=== PATIENT | female | born 1975 | race Hispanic/Latino ===

== ENCOUNTER 2018-08-24 09:16 | Outpatient (CLI) | payer OTHER ==
--- NOTE | 2018-08-24 22:20 | MMO ---
Bilateral MAMMO Bilat Screen [facility]DI. CLINICAL HISTORY: Patient is 42 years old and is seen for screening. The patient has the following family history of breast cancer: maternal aunt. The patient has no personal history of cancer. VIEWS: The views performed were: bilateral craniocaudal and bilateral mediolateral oblique. This study has been interpreted with the assistance of computer-aided detection. MAMMOGRAM FINDINGS: There are scattered fibroglandular densities. There are no suspicious masses, suspicious calcifications, or new areas of architectural distortion. IMPRESSION: THERE IS NO MAMMOGRAPHIC EVIDENCE OF MALIGNANCY. A ROUTINE FOLLOW-UP MAMMOGRAM IN 1 YEAR IS RECOMMENDED. ACR BI-RADS Category 1 - Negative MAMMOGRAPHY NOTE: 1. A negative mammogram report should not delay a biopsy if a dominant of clinically suspicious mass is present. 2. Approximately 10% to 15% of breast cancers are not detected by mammography. 3. Adenosis and dense breasts may obscure an underlying neoplasm.
== END 2018-08-24 09:17 | disposition home or self-care (01) ==
LOC: SCSMAMMO 09:16
PROVIDERS: ATTEND Family Medicine
DX: Z12.31 Encounter for screening mammogram for malignant neoplasm of breast (principal); Z80.3 Family history of malignant neoplasm of breast
CPT/HCPCS: 77067

== ENCOUNTER 2020-01-24 08:34 | Outpatient (CLI) | payer OTHER ==
--- NOTE | 2020-01-24 09:22 | ULT ---
US Abdominal: 01/24/2020 8:37 AM CLINICAL HISTORY: Hepatitis C. STUDY: Complete abdominal ultrasound COMPARISON: None. FINDINGS: Liver: Size: Normal. Echogenicity: Normal. Contour: Smooth. Mass: None. Common bile duct: 3 mm Gallbladder: Normal. Pancreas: Head, body, and tail appear normal. Inferior vena cava: Normal in caliber Aorta: Normal in caliber Spleen: No focal lesions. Spleen measuring 9.7 cm in length. Right kidney: No pelvicalyceal dilatation. Right kidney measuring 10.7 cm in length. Left kidney: No pelvicalyceal dilatation. Left kidney measuring 10.0 cm in length. IMPRESSION: Unremarkable exam.
== END 2020-01-24 08:35 | disposition home or self-care (01) ==
LOC: SCSULT 08:34
PROVIDERS: ATTEND Surgery Surgical Oncology
DX: B18.2 Chronic viral hepatitis C (principal)
CPT/HCPCS: 93975

== ENCOUNTER 2020-08-28 07:54 | Outpatient (CLI) | payer OTHER ==
[2020-08-28] MEDS ORDERED: Magnevist 469MG/ML 20 ML VIAL ONE (10:17)
== END 2020-08-28 07:55 | disposition home or self-care (01) ==
LOC: BICMRI 07:54
PROVIDERS: ATTEND Family Medicine
DX: M43.16 Spondylolisthesis, lumbar region (principal); M47.816 Spondylosis without myelopathy or radiculopathy, lumbar region
CPT/HCPCS: 72156; 82565; A9579

== ENCOUNTER 2022-01-01 08:00 | Day surgery (SDC) | payer OTHER ==
[2021-12-31 10:32] VITALS: BMI 35.3
[2022-01-01 09:02] LABS: #Eosinphils 0.1 thou/uL (0.0-0.7); #Lymphocytes 1.7 thou/uL (1.20-3.40); #Monocytes 0.7 thou/uL (0.11-0.59); #Neutrophils 4.2 thou/uL (1.40-6.50); %Basophils 0.7 % (0.0-1.0); %Eosinophils 1.7 % (0.0-10.0); %Lymphocytes 25.6 % (21.0-51.0); %Monocytes 10.2 % (0.0-10.0); %Neutrophils 61.8 % (42.0-75.0); Hemoglobin 14.3 g/dL (12.0-16.0); Mean Corpuscular HGB CONC 33.6 g/dL (32.0-36.0); Mean Corpuscular Hemoglobin 32.1 pg (27.0-31.0); Mean Corpuscular Volume 95.3 fL (78.0-98.0); Mean Platelet Volume 7.8 fL (7.4-10.4); Platelet Count 262 thou/uL (130-400); Red Blood Cell (RBC) Count 4.46 mill/uL (4.20-5.40); White Blood Cell (WBC) Count 6.7 thou/uL (4.8-10.8)
[2022-01-01 09:19] LABS: INR-International Normal Ratio 0.9; PTT 27.4 sec (22.9-36.1); Prothrombin Time 12.2 sec (12.0-14.7)
[2022-01-01 09:25] LABS: Anion Gap 12 mmol/L (10-20); BUN (Urea Nitrogen) 12 mg/dL (7.0-18.7); Calc. Creatinine Clearance 119 mL/min (70-130); Calcium 9.4 mg/dL (7.8-10.44); Carbon Dioxide 22 mmol/L (22-29); Chloride 105 mmol/L (98-107); Estimated GFR 93; Glucose 98 mg/dL (70-105); Potassium 4.1 mmol/L (3.5-5.1); Sodium 135 mmol/L (136-145)
[2022-01-01 09:27] LABS: ALT (SGPT) 11 U/L (8-55); AST (SGOT) 13 U/L (5-34); Albumin 4.6 g/dL (3.5-5.0); Alkaline Phosphatase 72 U/L (40-110); Bilirubin, Direct 0.2 mg/dL (0.1-0.3); Bilirubin, Total 0.5 mg/dL (0.2-1.2); Protein, Total 8.4 g/dL (6.0-8.3)
[2022-01-01] MEDS ORDERED: Lidocaine 1% (PF) 30 ML VIAL ONE (09:29)
[2022-01-01] MEDS ORDERED: EPINEPHrine 1 MG/ML AMP ONE (09:29)
[2022-01-01] MEDS ORDERED: CEFAZOLIN 2 GM VIAL ONE (09:43)
[2022-01-01] MEDS ORDERED: Sodium Chloride 0.9% 100 ML ONE (09:43)
[2022-01-01] MEDS ORDERED: fentaNYL Citrate/PF 100 MCG/2 ML SYRINGE ONE (09:49)
[2022-01-01] MEDS ORDERED: Ondansetron PF 4 MG/2 ML Vial ONE (09:54)
[2022-01-01] MEDS ORDERED: Dexamethasone 20 MG/5 ML VIAL ONE (09:54)
[2022-01-01] MEDS ORDERED: Lidocaine 1% MPF 2 ML VIAL ONE (09:54)
[2022-01-01] MEDS ORDERED: PROPOFOL 200 MG/20 ML VIAL ONE (09:54)
[2022-01-01] MEDS ORDERED: Ketorolac Tromethamine 30 MG/ML VIAL ONE (09:54)
== END 2022-01-01 12:03 | disposition home or self-care (01) ==
LOC: SDC 08:00
PROVIDERS: ATTEND Orthopaedic Surgery
PROC: 01N50ZZ Release Median Nerve, Open Approach (ICD-10-PCS; principal; 2022-01-01)
PROC: 0LN80ZZ Release Left Hand Tendon, Open Approach (ICD-10-PCS; principal; 2022-01-01)
DX: G56.03 Carpal tunnel syndrome, bilateral upper limbs (principal); M65.332 Trigger finger, left middle finger; I10 Essential (primary) hypertension; D64.9 Anemia, unspecified; F17.200 Nicotine dependence, unspecified, uncomplicated; E66.9 Obesity, unspecified; Z68.35 Body mass index [BMI] 35.0-35.9, adult; Z79.899 Other long term (current) drug therapy
CPT/HCPCS: 80048; 80076; 85025; 85610; 85730; 93005; 93010; J0171; J0690; J1100; J1885; J2001; J2405; J2704; J3490

== ENCOUNTER 2022-05-21 06:41 | Day surgery (SDC) | payer OTHER ==
[2022-05-19 12:57] VITALS: BMI 35.9
[2022-05-21] MEDS ORDERED: Lidocaine 1% MPF 2 ML VIAL ONE (07:37)
[2022-05-21] MEDS ORDERED: Sodium Chloride 0.9% 100 ML ONE (07:37)
[2022-05-21] MEDS ORDERED: CEFAZOLIN 2 GM VIAL ONE (07:37)
[2022-05-21] MEDS ORDERED: Acetaminophen 500 MG TAB ONE (08:16)
[2022-05-21 09:04] LABS: #Eosinphils 0.2 thou/uL (0.0-0.7); #Lymphocytes 1.7 thou/uL (1.20-3.40); #Monocytes 0.9 thou/uL (0.11-0.59); #Neutrophils 4.3 thou/uL (1.40-6.50); %Basophils 0.7 % (0.0-1.0); %Neutrophils 60.3 % (42.0-75.0); Hemoglobin 12.6 g/dL (12.0-16.0); Mean Corpuscular HGB CONC 34.6 g/dL (32.0-36.0); Mean Corpuscular Hemoglobin 32.3 pg (27.0-31.0); Mean Corpuscular Volume 93.3 fl (78.0-98.0); Mean Platelet Volume 7.9 fL (7.4-10.4); Platelet Count 239 10x3/uL (130-400); RBC Distribution Width 11.5 % (11.5-14.5); Red Blood Cell (RBC) Count 3.91 mill/uL (4.20-5.40); White Blood Cell (WBC) Count 7.2 10x3/uL (4.8-10.8)
[2022-05-21] MEDS ORDERED: Bupivacaine/Epinephrine 0.25% 30 ML VIAL ONE (09:04)
[2022-05-21 09:09] LABS: BHCG - Serum Negative (NEGATIVE); Pregs Control Background? CLEAR/WHITE (CLR/WHITE); Pregs Control Bar Appear? YES (CONTROL BAR)
[2022-05-21] MEDS ORDERED: fentaNYL PF 100 MCG/2 ML SYRINGE ONE (09:23)
[2022-05-21] MEDS ORDERED: Midazolam HCl 2 mg/2 ml Vial ONE (09:23)
[2022-05-21] MEDS ORDERED: Ketamine 50 MG/ML (10ML VIAL) ONE (09:23)
[2022-05-21] MEDS ORDERED: Propofol 500 MG/50 ML VIAL ONE (09:23)
== END 2022-05-21 11:06 | disposition home or self-care (01) ==
LOC: SDC 06:41
PROVIDERS: ATTEND Orthopaedic Surgery
PROC: 01N50ZZ Release Median Nerve, Open Approach (ICD-10-PCS; principal; 2022-05-21)
DX: G56.01 Carpal tunnel syndrome, right upper limb (principal); I10 Essential (primary) hypertension; Z79.899 Other long term (current) drug therapy
CPT/HCPCS: 84703; 85025; J2250; J2704; J3490